=== PATIENT | female | born 1975 | race Caucasian/White ===

== ENCOUNTER → 2017-04-24 11:09 | Outpatient (CLI) | payer BC | END | disposition home or self-care (01) | LOC: D.MRI 11:09 | DX: R51 Headache (principal) ==

== ENCOUNTER → 2017-10-23 08:57 | Outpatient (CLI) | payer BC | END | disposition home or self-care (01) | LOC: D.RAD 08:57 | DX: K21.0 Gastro-esophageal reflux disease with esophagitis (principal) ==

== ENCOUNTER 2017-12-01 08:10 | Emergency (ER) | payer BC ==
[2017-12-01 08:45] LABS: BASOPHILS 0.2 % (0-2); EOSINOPHILS 0.2 % (0-7); HEMATOCRIT 44.8 % (36.0-48.0); IMMATURE GRANULOCYTES 0.6 % (0-5); LYMPHOCYTES 13.2 % (15-50); MCH 30.2 pg (26.0-34.0); MCHC 33.5 g/dL (31.0-37.0); MCV 90.3 fL (80.0-100.0); MEAN PLATELET VOLUME 9.1 fL (7.4-10.4); NEUTROPHILS 68.8 % (40-80); PLATELET COUNT 179 10x3/uL (130-400); RBC 4.96 10x6/uL (4.00-5.40); RDW 12.6 % (11.5-14.5); WBC 6.3 10x3/uL (4.8-10.8)
[2017-12-01 08:58] LABS: INR 1.02 (0.85-1.17)
[2017-12-01 09:00] LABS: D-DIMER-QUANTITATIVE 0.59 ug/mLFEU (0.20-0.54)
[2017-12-01 09:07] LABS: ALBUMIN 3.8 g/dL (3.4-5.0); ALKALINE PHOSPHATASE 82 U/L (46-116); ALT (SGPT) 217 U/L (10-68); BILIRUBIN - TOTAL 0.32 mg/dL (0.2-1.3); CALC OSMOLALITY 278 mosm/kg (275-300); CALCIUM 9.4 mg/dL (8.5-10.1); CHLORIDE - SERUM 102 mmol/L (98-107); CREATININE - SERUM 1.5 mg/dL (0.6-1.3); GLUCOSE 104 mg/dL (74-106); POTASSIUM - SERUM 4.2 mmol/L (3.5-5.1); PROTEIN - SERUM 7.3 g/dL (6.4-8.2); SODIUM 138 mmol/L (136-145); UREA NITROGEN 20 mg/dL (7-18); eGFR NON AFRICAN AMERICAN 41 mL/min (90-120)
[2017-12-01 09:29] LABS: CKMB 0.1 U/L (0.0-3.6); CREATINE KINASE 54 UL (21-215); PRO BNP 25 pg/mL (0-125)
[2017-12-01 09:30] LABS: TROPONIN-I < 0.017 ng/mL (0.000-0.060)
== END 2017-12-01 11:34 | disposition home or self-care (01) ==
LOC: D.ER 08:10
PROVIDERS: Family Medicine
DX: J11.1 Influenza due to unidentified influenza virus with other respiratory manifestations (principal); E86.0 Dehydration; K21.9 Gastro-esophageal reflux disease without esophagitis; E05.90 Thyrotoxicosis, unspecified without thyrotoxic crisis or storm

== ENCOUNTER → 2018-03-30 08:33 | Outpatient (CLI) | payer BC ==
[~2018-03-30] VITALS: Ht 157.5 cm; Wt 102.5 kg
[2018-03-30 10:40] VITALS: Ht 157.5 cm; Wt 102.5 kg
== END | disposition home or self-care (01) ==
LOC: D.FANS 08:33
DX: E66.01 Morbid (severe) obesity due to excess calories (principal)

== ENCOUNTER → 2018-03-31 19:09 | Outpatient (CLI) | payer BC ==
[2018-03-30 10:40] VITALS: BMI 41.3
== END | disposition home or self-care (01) ==
LOC: D.MAMMO 09:45
DX: Z12.31 Encounter for screening mammogram for malignant neoplasm of breast (principal)

== ENCOUNTER → 2018-04-15 11:23 | Outpatient (CLI) | payer BC ==
[2018-03-30 10:40] VITALS: BMI 41.3
== END | disposition home or self-care (01) ==
LOC: D.US 11:00
DX: R93.8 Abnormal findings on diagnostic imaging of other specified body structures (principal)

== ENCOUNTER 2018-08-02 05:26 | Inpatient (IN) | payer SELFPAY ==
[2018-07-30 13:57] LABS: BASOPHILS 0.1 % (0-2); EOSINOPHILS 2.8 % (0-7); HEMOGLOBIN 14.9 g/dL (12-16); IMMATURE GRANULOCYTES 0.3 % (0-5); MCH 30.5 pg (26.0-34.0); MCHC 34.7 g/dL (31.0-37.0); MCV 88.1 fL (80.0-100.0); MEAN PLATELET VOLUME 9.5 fL (7.4-10.4); MONOCYTES 10.8 % (2-11); PLATELET COUNT 193 10x3/uL (130-400); RBC 4.88 10x6/uL (4.00-5.40); RDW 12.4 % (11.5-14.5)
[2018-07-30 14:05] LABS: ANION GAP 7.4 mmol/L (8-16); CALCIUM 8.5 mg/dL (8.5-10.1); CARBON DIOXIDE 30.3 mmol/L (21.0-32.0); CREATININE - SERUM 1.3 mg/dL (0.6-1.3); POTASSIUM - SERUM 3.7 mmol/L (3.5-5.1)
[2018-07-30 14:06] LABS: APTT 24.6 SECONDS (22.8-39.4); PROTIME 12.8 SECONDS (11.6-15.0)
[2018-08-02] VITALS (13 sets, daily range): BP systolic 111–135; BP diastolic 71–92; BMI 43.4; BMI 42.1
[~2018-08-02] VITALS: Ht 157.5 cm; Wt 104.3 kg
[~2018-08-02 05:26] MED LIST: EFFEXOR XR75 MG PO; LEVOTHYROXINE75 MCG PO; MULTIPLE VITAMI1 TA1 PO
[2018-08-02 07:04] LABS: HCG URINE NEGATIVE (NEGATIVE)
[2018-08-03 06:39] LABS: BASOPHILS 0 % (0-2); EOSINOPHILS 0.1 % (0-7); HEMATOCRIT 39.8 % (36.0-48.0); HEMOGLOBIN 13.2 g/dL (12-16); IMMATURE GRANULOCYTES 0.2 % (0-5); LYMPHOCYTES 18.1 % (15-50); MCH 29.8 pg (26.0-34.0); MCHC 33.2 g/dL (31.0-37.0); MCV 89.8 fL (80.0-100.0); MEAN PLATELET VOLUME 9.1 fL (7.4-10.4); MONOCYTES 12.2 % (2-11); NEUTROPHILS 69.4 % (40-80); PLATELET COUNT 167 10x3/uL (130-400); RBC 4.43 10x6/uL (4.00-5.40); RDW 12.4 % (11.5-14.5); WBC 9.1 10x3/uL (4.8-10.8)
[2018-08-03 07:51] LABS: ALBUMIN 3.3 g/dL (3.4-5.0); ANION GAP 16.2 mmol/L (8-16); BILIRUBIN - TOTAL 0.76 mg/dL (0.2-1.3); CALCIUM 7.9 mg/dL (8.5-10.1); CREATININE - SERUM 1.3 mg/dL (0.6-1.3); POTASSIUM - SERUM 4.2 mmol/L (3.5-5.1); PROTEIN - SERUM 6.3 g/dL (6.4-8.2)
[2018-08-03 10:30] VITALS: BP 123/76
[2018-08-03 11:01] VITALS: Ht 157.5 cm; Wt 104.3 kg
[2018-08-03 13:24] VITALS: BP 112/70
[2018-08-04] VITALS: BP 121/70
[2018-08-04 04:00] VITALS: BP 97/62
[2018-08-04] MEDS ORDERED: DEMEROL100 MG PO (08:30)
[2018-08-04] MEDS ORDERED: ZOFRAN ODT4 MG/UDTAB PO (08:31)
[2018-08-04] MEDS ORDERED: PHENERGAN25 M1 PO (08:31)
[2018-08-04 09:02] LABS: BASOPHILS 0.2 % (0-2); EOSINOPHILS 1.1 % (0-7); HEMATOCRIT 35.4 % (36.0-48.0); HEMOGLOBIN 11.7 g/dL (12-16); IMMATURE GRANULOCYTES 0.3 % (0-5); LYMPHOCYTES 22.8 % (15-50); MCH 29.8 pg (26.0-34.0); MCHC 33.1 g/dL (31.0-37.0); MCV 90.3 fL (80.0-100.0); MEAN PLATELET VOLUME 9.2 fL (7.4-10.4); NEUTROPHILS 63.6 % (40-80); PLATELET COUNT 147 10x3/uL (130-400); RBC 3.92 10x6/uL (4.00-5.40); RDW 12.5 % (11.5-14.5)
[2018-08-04 09:06] LABS: WBC 6.4 10x3/uL (4.8-10.8)
[2018-08-04 09:08] LABS: ANION GAP 9.4 mmol/L (8-16); CALCIUM 8.2 mg/dL (8.5-10.1); CARBON DIOXIDE 28.8 mmol/L (21.0-32.0); CREATININE - SERUM 1.4 mg/dL (0.6-1.3); POTASSIUM - SERUM 3.2 mmol/L (3.5-5.1)
[2018-08-04 09:56] VITALS: BP 117/66
== END 2018-08-04 12:00 | disposition home or self-care (01) | DRG 621 ==
LOC: D.MS 05:26 → D.SDCHOLD 05:26 → D.MS 09:39
PROVIDERS: Anesthesiology; Surgery
PROC: 0DB64Z3 Excision of Stomach, Percutaneous Endoscopic Approach, Vertical (ICD-10-PCS; principal; 2018-08-02 07:30)
DX: E66.01 Morbid (severe) obesity due to excess calories (principal); K21.9 Gastro-esophageal reflux disease without esophagitis; Z68.41 Body mass index [BMI] 40.0-44.9, adult; K44.9 Diaphragmatic hernia without obstruction or gangrene